=== PATIENT | female | born 1985 | race American Indian/Alaskan Native ===

== ENCOUNTER 2017-02-04 09:35 | Emergency (ER) | payer MEDICAID ==
--- NOTE | 2017-02-04 09:51 | EDM.PDOC ---
ED HPI GENERAL MEDICAL PROBLEM - General Chief Complaint: ENT Problem Stated Complaint: NOT FEELING GOOD Time Seen by Provider: 02/04/17 09:50 Source of Information: Reports: Patient, RN, RN notes reviewed History Limitations: Reports: No limitations - History of Present Illness INITIAL COMMENTS - FREE TEXT/NARRATIVE: C/O 1 week of nasal congestion, cough, and wheezing. Occ. coughs up some thick yellow sputum. Has felt feverish on/off but hasn't measured temperature. Admits to sore throat, wilfredo. when coughing. Onset: gradual Duration: Constant, Getting worse Location: Reports: generalized Severity: moderate Improves with: Reports: None Worsens with: Reports: None Context: Denies: Activity, Exercise, Lifting, Sick contact, Trauma Associated Symptoms: Reports: no other symptoms Anterior Chest Pain Score (Numeric/FACES): 4 - Related Data Allergies Allergy/AdvReac Type Severity Reaction Status Date / Time erythromycin base Allergy Unknown Cannot Verified 07/10/16 21:22 [Erythromycin Base] Remember Sulfa (Sulfonamide Allergy Cannot Verified 07/10/16 21:22 Antibiotics) Remember Home Meds: Home Meds . [No Known Home Meds] 02/04/17 [History] Past Medical History - Past Health History Medical/Surgical History: Denies Medical/Surgical History Cardiovascular History: Reports: Hypertension Genitourinary History: Reports: None Other Neuro History: questionable stroke 2011 Endocrine/Metabolic History: Reports: Diabetes, type II - Past Surgical History Other Musculoskeletal Surgeries/Procedures:: foot surgery Social & Family History - Family History Family Medical History: Noncontributory - Tobacco Use Smoking Status *Q: Never Smoker Years of Tobacco use: 5 Used Tobacco, but Quit: Yes Month Tobacco Last Used: 01/07 Second Hand Smoke Exposure: No - Caffeine Use Caffeine Use: Reports: Soda - Alcohol Use Days Per Week of Alcohol Use: 0 - Recreational Drug Use Recreational Drug Use: No - Living Situation & Occupation Living situation: Reports: , with family Occupation: unemployed ED ROS ENT - Review of Systems Review Of Systems: ROS reveals no pertinent complaints other than HPI. ED EXAM, ENT - Physical Exam Exam: See Below Exam Limited By: No limitations General Appearance: alert, WD/WN, no apparent distress, obese Eye Exam: bilateral eye: normal inspection Ears: normal external exam, normal canal, hearing grossly normal, normal TMs Nose: no blood, nasal discharge (yellow-mcgowan, small amount) Mouth/Throat: Normal inspection, Normal gums, Normal lips, Normal oropharynx, Normal teeth Head: atraumatic, normocephalic Neck: normal inspection, supple, non-tender, full range of motion. No: lymphadenopathy (L), lymphadenopathy (R) Respiratory/Chest: no respiratory distress, no accessory muscle use, chest non- tender, decreased breath sounds, wheezing (mild, scattered) Cardiovascular: normal peripheral pulses, regular rate, rhythm, no edema, no gallop, no JVD, no murmur, no rub GI/Abdominal: Normal Bowel Sounds, Soft, Non-Tender, No Distention (Female) Exam: Deferred Rectal (Female) Exam: Deferred Back: normal inspection, full range of motion Extremities: normal inspection, normal range of motion, non-tender, no pedal edema, normal capillary refill Neurological: alert, oriented, CN II-XII intact, normal cognition, normal gait, no motor/sensory deficits Psychiatric: normal affect, normal mood Skin: Warm, Dry, Intact, Normal color, No rash Course - Vital Signs Last Recorded V/S: Last Vital Signs Temp 36.8 C 02/04/17 09:56 Pulse 96 02/04/17 10:39 Resp 20 02/04/17 09:56 BP 165/103 H 02/04/17 09:56 Pulse Ox 97 02/04/17 09:56 - Orders/Labs/Meds Orders: Active Orders 24 hr Category Date Time Status EKG 12 Lead [EKG Documentation Completion] [] STAT Care 02/04/17 10:26 Active RT Aerosol Therapy [] ASDIRECTED Care 02/04/17 10:27 Active CULTURE STREP A CONFIRMATION [] Stat Lab 02/04/17 09:52 Results STREP SCRN A RAPID W CULT CONF [] Stat Lab 02/04/17 09:52 Results Labs: Laboratory Tests 02/04/17 02/04/17 02/04/17 Range/Units 10:25 10:25 10:35 WBC 12.5 H (5.0-10.0) 10^3/uL RBC 4.89 (4.2-5.4) 10^6/uL Hgb 12.9 (12.0-16.0) g/dL Hct 38.8 (37.0-47.0) % MCV 79.3 L (80-100) fL MCH 26.4 L (27.0-34.0) pg MCHC 33.2 (33.0-35.0) g/dL Plt Count 331 (150-450) 10^3/uL Neut % (Auto) 66.4 (42.2-75.2) % Lymph % (Auto) 25.5 (20.5-50.1) % Garza % (Auto) 5.3 (2-8) % Eos % (Auto) 2.6 (1.0-3.0) % Baso % (Auto) 0.2 (0.0-1.0) % D-Dimer, Quantitative (0-400) ng/mL Sodium (135-145) mmol/L Potassium (3.6-5.0) mmol/L Chloride (101-111) mmol/L Carbon Dioxide (21.0-31.0) mmol/L Anion Gap BUN (7-18) mg/dL Creatinine (0.6-1.3) mg/dL Est Cr Clr Drug Dosing mL/min Estimated GFR (MDRD) BUN/Creatinine Ratio Glucose (74-105) mg/dL Calcium (8.4-10.2) mg/dl Total Bilirubin (0.2-1.0) mg/dL AST (10-42) IU/L ALT (10-60) IU/L Alkaline Phosphatase (42-121) IU/L Total Protein (6.7-8.2) g/dl Albumin (3.2-5.5) g/dl Globulin Albumin/Globulin Ratio TSH, Ultra Sensitive (0.35-7.0) uIu/mL Urine Color Yellow (YELLOW) Urine Appearance Clear (CLEAR) Urine pH 7.0 (5.0-9.0) Ur Specific [place] 1.015 (1.005-1.030) Urine Protein 100 H (NEGATIVE) Urine Glucose (UA) 500 H (NEGATIVE) Urine Ketones 15 H (NEGATIVE) Urine Occult Blood Trace-intact H (NEGATIVE) Urine Nitrite Negative (NEGATIVE) Urine Bilirubin Negative (NEGATIVE) Urine Urobilinogen 0.2 (0.2-1.0) mg/dL Ur Leukocyte Esterase Negative (NEGATIVE) Urine RBC 0-5 /HPF Urine WBC Not seen (0-5/HPF) /HPF Ur Epithelial Cells Few /HPF Urine Yeast Rare H (0/HPF) /HPF Urine HCG, Qual Negative 02/04/17 02/04/17 02/04/17 Range/Units 10:35 10:35 10:35 WBC (5.0-10.0) 10^3/uL RBC (4.2-5.4) 10^6/uL Hgb (12.0-16.0) g/dL Hct (37.0-47.0) % MCV (80-100) fL MCH (27.0-34.0) pg MCHC (33.0-35.0) g/dL Plt Count (150-450) 10^3/uL Neut % (Auto) (42.2-75.2) % Lymph % (Auto) (20.5-50.1) % Garza % (Auto) (2-8) % Eos % (Auto) (1.0-3.0) % Baso % (Auto) (0.0-1.0) % D-Dimer, Quantitative < 100 (0-400) ng/mL Sodium 134 L (135-145) mmol/L Potassium 4.1 (3.6-5.0) mmol/L Chloride 100 L (101-111) mmol/L Carbon Dioxide 22.0 (21.0-31.0) mmol/L Anion Gap 16.1 BUN 10 (7-18) mg/dL Creatinine 0.6 (0.6-1.3) mg/dL Est Cr Clr Drug Dosing 123.37 mL/min Estimated GFR (MDRD) > 60 BUN/Creatinine Ratio 16.66 Glucose 378 H (74-105) mg/dL Calcium 9.1 (8.4-10.2) mg/dl Total Bilirubin 0.3 (0.2-1.0) mg/dL AST 30 (10-42) IU/L ALT 32 (10-60) IU/L Alkaline Phosphatase 127 H (42-121) IU/L Total Protein 7.3 (6.7-8.2) g/dl Albumin 3.8 (3.2-5.5) g/dl Globulin 3.5 Albumin/Globulin Ratio 1.09 TSH, Ultra Sensitive 1.40 (0.35-7.0) uIu/mL Urine Color (YELLOW) Urine Appearance (CLEAR) Urine pH (5.0-9.0) Ur Specific [place] (1.005-1.030) Urine Protein (NEGATIVE) Urine Glucose (UA) (NEGATIVE) Urine Ketones (NEGATIVE) Urine Occult Blood (NEGATIVE) Urine Nitrite (NEGATIVE) Urine Bilirubin (NEGATIVE) Urine Urobilinogen (0.2-1.0) mg/dL Ur Leukocyte Esterase (NEGATIVE) Urine RBC /HPF Urine WBC (0-5/HPF) /HPF Ur Epithelial Cells /HPF Urine Yeast (0/HPF) /HPF Urine HCG, Qual Meds: Medications Discontinued Medications Generic Name Dose Route Start Last Admin Trade Name Freq PRN Reason Stop Dose Admin Albuterol/Ipratropium 3 ml 02/04/17 10:27 02/04/17 10:39 Duoneb 3.0-0.5 Mg/3 Ml NEB 02/04/17 10:28 3 ml ONETIME ONE Administration Benzonatate 200 mg 02/04/17 10:27 02/04/17 10:49 Tessalon Perles PO 02/04/17 10:28 200 mg ONETIME ONE Administration Ceftriaxone Sodium 1 gm/ 0 gm 02/04/17 12:01 Lidocaine HCl 2.1 ml IM 02/04/17 12:02 ONETIME ONE Metoprolol Succinate 25 mg 02/04/17 12:01 Toprol Xl PO 02/04/17 12:02 ONETIME ONE - Radiology Interpretation Free Text/Narrative:: CXR: early basilar infiltrate, seen best on lateral view, see Rad. report. Departure - Departure Time of Disposition: 12:21 Disposition: Home, Self-Care 01 Condition: fair Clinical Impression: Uncontrolled hypertension, Vaginal candidiasis Pneumonia Qualifiers: Pneumonia type: due to unspecified organism Laterality: unspecified laterality Lung location: lower lobe of lung Qualified Code(s): J18.1 - Lobar pneumonia, unspecified organism Diabetes mellitus type 2, uncontrolled Qualifiers: Diabetes mellitus complication status: without complication Diabetes mellitus usp insulin use: without terminal operator use Qualified Code(s): E11.65 - Type 2 diabetes mellitus with hyperglycemia - Discharge Information Instructions: Community-Acquired Pneumonia, Adult, [id number], Hypertension, [id number], Type 2 Diabetes Mellitus, Adult, Vaginal Yeast Infection, Adult Forms: ED Department Discharge Additional Instructions: Rx: Cefdinir 300mg Rx: Albuterol MDI Rx: Diflucan 150mg Rx: Metoprolol XL 25mg Rx: Metformin 500mg Follow up in clinic with Dr. Sesay in 10 to 12 days. - My Orders Last 24 Hours: My Active Orders 02/04/17 09:52 CULTURE STREP A CONFIRMATION [RM] Stat STREP SCRN A RAPID W CULT CONF [RM] Stat 02/04/17 10:26 EKG 12 Lead [EKG Documentation Completion] [RC] STAT 02/04/17 10:27 RT Aerosol Therapy [RC] ASDIRECTED - Assessment/Plan Last 24 Hours: My Active Orders 02/04/17 09:52 CULTURE STREP A CONFIRMATION [RM] Stat STREP SCRN A RAPID W CULT CONF [RM] Stat 02/04/17 10:26 EKG 12 Lead [EKG Documentation Completion] [RC] STAT 02/04/17 10:27 RT Aerosol Therapy [RC] ASDIRECTED
[2017-02-04] MEDS ORDERED: Albuterol/Ipratropium 3.0-0.5 MG/3 ML Neb Soln NEB ONE (10:27)
[2017-02-04] MEDS ORDERED: Benzonatate 100 MG Cap PO ONE (10:27)
[2017-02-04 11:01] LABS: CHLORIDE,CL 100 mmol/L (101-111); SODIUM,NA 134 mmol/L (135-145)
[2017-02-04] MEDS ORDERED: Metoprolol Succinate 25 MG Tab.ER PO ONE (12:01)
[2017-02-04] MEDS ORDERED: cefTRIAXone 1 GM, Lidocaine 1% 2.1 ML IM ONE ×2 (12:01)
--- NOTE | 2017-02-04 12:03 | CR ---
CLINICAL HISTORY: 31-year-old female with cough and dyspnea. INTERPRETATION: Less than optimal inspiratory effort obese female with subtle peribronchial "cuffing " suggesting reactive airway disease but no current signs of air trapping, lung mass, hilar lymphade nopathy or focal lobar pneumonia. No atelectasis/collapse. Ana thorax unremarkable. No pneumothorax. CONCLUSION: Mild bronchitis. No signs of heart failure or lobar pneumonia.
[2017-02-04 12:24] VITALS: BP 152/100
== END 2017-02-04 12:39 | disposition home or self-care (01) ==
LOC: DL.ED 09:35
DX: J18.1 Lobar pneumonia, unspecified organism (principal); B37.3 Candidiasis of vulva and vagina; I10 Essential (primary) hypertension; E11.65 Type 2 diabetes mellitus with hyperglycemia; Z88.2 Allergy status to sulfonamides; Z88.8 Allergy status to other drugs, medicaments and biological substances
CPT/HCPCS: 36415; 71020; 80053; 81001; 81025; 84443; 85025; 85379; 87081; 87430; 94640; 96372; 99285; A9270; J0696

== ENCOUNTER 2018-01-27 21:14 | Emergency (ER) | payer MEDICAID ==
[2018-01-27 20:57] VITALS: BP 170/103
--- NOTE | 2018-01-27 21:18 | EDM.PDOC ---
ED HPI GENERAL MEDICAL PROBLEM - General Chief Complaint: General Stated Complaint: ANXIETY Time Seen by Provider: 01/27/18 21:25 Source of Information: Reports: Patient History Limitations: Reports: No Limitations - History of Present Illness INITIAL COMMENTS - FREE TEXT/NARRATIVE: This 32 yo female patient was brought to the ED by [facility] due to elevated blood pressure and anxiety. By the time the patient got to the ED, the patient reports her blood pressure seems to be better and her anxiety is under control. The patient reports that she has a sore throat and swelling on the right side of her neck. The patient also reports that she has a red area on her left inner lower leg. The pt. reports the area started like a pimple, but has continued to get more painful and getting bigger. The patient reports she initially "popped" it and has been cleaning it daily, but has noticed that the area is more tender. Onset: Today Duration: Constant, Getting Worse Location: Reports: Neck, Lower Extremity, Left Quality: Reports: Ache Severity: Moderate Improves with: Reports: None Worsens with: Reports: None Associated Symptoms: Reports: No Other Symptoms - Related Data Allergies Allergy/AdvReac Type Severity Reaction Status Date / Time erythromycin base Allergy Unknown Cannot Verified 01/27/18 21:00 [Erythromycin Base] Remember Sulfa (Sulfonamide Allergy Cannot Verified 01/27/18 21:00 Antibiotics) Remember Home Meds: Home Meds Lisinopril 10 mg PO DAILY 01/27/18 [History] Metoprolol Succinate/HCTZ [Metoprolol ER-Hctz 25-12.5 mg] 25 mg PO DAILY [History] glipiZIDE [Glucotrol XL] 10 mg PO BID 01/27/18 [History] Past Medical History - Past Health History Medical/Surgical History: Denies Medical/Surgical History Cardiovascular History: Reports: Hypertension Genitourinary History: Reports: None Musculoskeletal History: Reports: None Neurological History: Reports: Other (See Below) Other Neuro History: Hornbeck palsy hx Psychiatric History: Reports: Anxiety Endocrine/Metabolic History: Reports: Diabetes, Type II - Past Surgical History HEENT Surgical History: Reports: Myringotomy w Tube(s) Female Surgical History: Reports: Section, Tubal Ligation Musculoskeletal Surgical History: Reports: Other (See Below) Other Musculoskeletal Surgeries/Procedures:: foot surgery Social & Family History - Family History Family Medical History: Noncontributory - Tobacco Use Smoking Status *Q: Current Every Day Smoker Years of Tobacco use: 1 Packs/Tins Daily: 0.2 Used Tobacco, but Quit: Yes Month/Year Tobacco Last Used: 01/07 Second Hand Smoke Exposure: No - Caffeine Use Caffeine Use: Reports: None - Alcohol Use Days Per Week of Alcohol Use: 0 - Recreational Drug Use Recreational Drug Use: No - Living Situation & Occupation Living situation: Reports: , with Family Occupation: Unemployed ED ROS GENERAL - Review of Systems Review Of Systems: ROS reveals no pertinent complaints other than HPI. ED EXAM, GENERAL - Physical Exam Exam: See Below Exam Limited By: No Limitations General Appearance: Alert, WD/WN, Mild Distress Eye Exam: Bilateral Eye: EOMI, Normal Inspection, PERRL Ears: Normal External Exam, Normal Canal, Hearing Grossly Normal, Normal TMs Nose: Normal Inspection, Normal Mucosa, No Blood Throat/Mouth: Normal Inspection, Normal Lips, Normal Teeth, Normal Gums, Normal Oropharynx, Normal Voice, No Airway Compromise Head: Atraumatic, Normocephalic Neck: Normal Inspection, Full Range of Motion, Lymphadenopathy (R) Respiratory/Chest: No Respiratory Distress, Lungs Clear, Normal Breath Sounds, No Accessory Muscle Use, Chest Non-Tender Cardiovascular: Normal Peripheral Pulses, Regular Rate, Rhythm, No Edema, No Gallop, No JVD, No Murmur, No Rub GI/Abdominal: Normal Bowel Sounds, Soft, Non-Tender, No Organomegaly, No Distention, No Abnormal Bruit, No Mass (Female) Exam: Deferred Rectal (Female) Exam: Deferred Back Exam: Normal Inspection, Full Range of Motion, NT Extremities: Redness (medial left lower leg has an erythematous area about 1 cm across) Neurological: Alert, Oriented, CN II-XII Intact, Normal Cognition, Normal Gait, Normal Reflexes, No Motor/Sensory Deficits Psychiatric: Normal Affect, Normal Mood Skin Exam: Other (described above) Lymphatic: No Adenopathy Course - Vital Signs Last Recorded V/S: Last Vital Signs Temp 36.8 C 01/27/18 20:56 Pulse 92 01/27/18 20:56 Resp 20 01/27/18 20:56 BP 170/103 H 01/27/18 20:56 Pulse Ox 99 01/27/18 20:56 Departure - Departure Time of Disposition: 22:11 Disposition: Home, Self-Care 01 Condition: Fair Clinical Impression: Strep pharyngitis, Cellulitis of left lower extremity - Discharge Information Instructions: Strep Throat, Gxrq-[id number], Cellulitis, Adult, [id number]-Pavf Forms: ED Department Discharge Care Plan Goals: The patient was advised of the examination and lab results during the visit. The patient was given an oral dose of Clindamycin (300 mg) while in the ED. The patient was discharged with a script for Clindamycin (300 mg) to take 1 by mouth 4 times per day for 10 days. If the patient has any additional symptoms or concerns, the patient should follow-up with her primary care facility or return to the emergency department.
[2018-01-27] MEDS ORDERED: Clindamycin HCl 150 MG Cap PO ONE (22:14)
== END 2018-01-27 22:21 | disposition home or self-care (01) ==
LOC: DL.ED 21:14
DX: J02.0 Streptococcal pharyngitis (principal); L03.116 Cellulitis of left lower limb; F17.210 Nicotine dependence, cigarettes, uncomplicated; I10 Essential (primary) hypertension; E11.9 Type 2 diabetes mellitus without complications; F41.9 Anxiety disorder, unspecified; Z79.899 Other long term (current) drug therapy; Z88.2 Allergy status to sulfonamides; Z88.1 Allergy status to other antibiotic agents
CPT/HCPCS: 87430; 99284

== ENCOUNTER 2018-02-10 22:11 | Emergency (ER) | payer MEDICAID ==
[2018-02-10 23:01] LABS: CHLORIDE,CL 104 mmol/L (101-111); SODIUM,NA 137 mmol/L (135-145)
[2018-02-10] MEDS ORDERED: Potassium Chloride 10 MEQ Tab.ER PO ONE (23:30)
--- NOTE | 2018-02-10 23:38 | EDM.PDOC ---
ED HPI GENERAL MEDICAL PROBLEM - General Chief Complaint: General Stated Complaint: WEAKNESS Time Seen by Provider: 02/10/18 22:20 Source of Information: Reports: Patient History Limitations: Reports: No Limitations - History of Present Illness INITIAL COMMENTS - FREE TEXT/NARRATIVE: ED with c/o of feeling weak today and that something poking in left arm, Better now than prior. Has hx of high BP and was told to check it every 4 hours but has been taking every 2 hours, unable to recall where was told to check that frequently. Notes has been 150's-160"s at home. Wonders if blood sugars high. - Related Data Allergies Allergy/AdvReac Type Severity Reaction Status Date / Time erythromycin base Allergy Unknown Cannot Verified 02/10/18 22:02 [Erythromycin Base] Remember Sulfa (Sulfonamide Allergy Cannot Verified 02/10/18 22:02 Antibiotics) Remember Home Meds: Home Meds Lisinopril 10 mg PO DAILY 01/27/18 [History] Metoprolol Succinate/HCTZ [Metoprolol ER-Hctz 25-12.5 mg] 25 mg PO DAILY [History] glipiZIDE [Glucotrol XL] 10 mg PO BID 01/27/18 [History] Past Medical History - Past Health History Medical/Surgical History: Denies Medical/Surgical History HEENT History: Reports: Impaired Vision Cardiovascular History: Reports: Hypertension Genitourinary History: Reports: None 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: Musculoskeletal History: Reports: None Neurological History: Reports: CVA, Other (See Below) Other Neuro History: questionable stroke 2012, Rosman palsy Psychiatric History: Reports: Anxiety, Depression Endocrine/Metabolic History: Reports: Diabetes, Type II - Past Surgical History HEENT Surgical History: Reports: Myringotomy w Tube(s) Female Surgical History: Reports: Section Musculoskeletal Surgical History: Reports: Other (See Below) Other Musculoskeletal Surgeries/Procedures:: foot surgery Social & Family History - Family History Family Medical History: Noncontributory - Tobacco Use Smoking Status *Q: Current Every Day Smoker Years of Tobacco use: 14 Packs/Tins Daily: 0.1 - Caffeine Use Caffeine Use: Reports: None - Recreational Drug Use Recreational Drug Use: No - Living Situation & Occupation Living situation: Reports: , with Family Occupation: Unemployed ED ROS GENERAL - Review of Systems Review Of Systems: See Below Constitutional: Reports: Weakness (general, "just dont feel good). Denies: Fever, Chills HEENT: Reports: No Symptoms Respiratory: Reports: No Symptoms Cardiovascular: Reports: Blood Pressure Problem. Denies: Lightheadedness, Palpitations Endocrine: Reports: No Symptoms GI/Abdominal: Reports: No Symptoms : Reports: No Symptoms Musculoskeletal: Reports: Arm Pain Skin: Reports: No Symptoms Neurological: Reports: No Symptoms, Weakness (general). Denies: Headache, Numbness, Difficulty Walking, Change in Speech, Gait Disturbance Psychiatric: Reports: Anxiety ED EXAM, GENERAL - Physical Exam Exam: See Below Exam Limited By: No Limitations General Appearance: Alert, No Apparent Distress, Obese Eye Exam: Bilateral Eye: EOMI, PERRL Ears: Normal External Exam Nose: Normal Inspection, Normal Mucosa Throat/Mouth: Normal Inspection Head: Atraumatic, Normocephalic Neck: Normal Inspection Respiratory/Chest: No Respiratory Distress, Lungs Clear, Normal Breath Sounds Cardiovascular: Normal Peripheral Pulses, Regular Rate, Rhythm, No Edema GI/Abdominal: Normal Bowel Sounds (Female) Exam: Normal Speculum Exam Extremities: Normal Inspection, Normal Range of Motion, Non-Tender, No Pedal Edema Neurological: Alert, Oriented, CN II-XII Intact, Normal Cognition, Normal Reflexes, Other (equal strentgth upper and lower.) Psychiatric: Anxious Skin Exam: Warm, Dry, Intact, Normal Color Course - Vital Signs Last Recorded V/S: Last Vital Signs Temp 98.7 F 02/10/18 23:43 Pulse 84 02/10/18 23:43 Resp 16 02/10/18 23:43 BP 135/75 02/10/18 23:43 Pulse Ox 99 02/10/18 23:43 - Orders/Labs/Meds Labs: Laboratory Tests 02/10/18 02/10/18 02/10/18 Range/Units 22:27 22:27 22:27 WBC 10.7 H (5.0-10.0) 10^3/uL RBC 4.84 (4.2-5.4) 10^6/uL Hgb 12.7 (12.0-16.0) g/dL Hct 37.8 (37.0-47.0) % MCV 78.1 L (80-100) fL MCH 26.2 L (27.0-34.0) pg MCHC 33.6 (33.0-35.0) g/dL Plt Count 316 (150-450) 10^3/uL Neut % (Auto) 62.0 (42.2-75.2) % Lymph % (Auto) 31.9 (20.5-50.1) % [place] % (Auto) 4.6 (2-8) % Eos % (Auto) 1.3 (1.0-3.0) % Baso % (Auto) 0.2 (0.0-1.0) % Sodium 137 (135-145) mmol/L Potassium 3.2 L (3.6-5.0) mmol/L Chloride 104 (101-111) mmol/L Carbon Dioxide 22.0 (21.0-31.0) mmol/L Anion Gap 14.2 BUN 9 (7-18) mg/dL Creatinine 0.5 L (0.6-1.3) mg/dL Est Cr Clr Drug Dosing 146.70 mL/min Estimated GFR (MDRD) > 60 BUN/Creatinine Ratio 18.00 Glucose 221 H (74-105) mg/dL POC Glucose (70-105) mg/dl Lactic Acid 1.9 (0.5-2.2) mmol/L Calcium 8.7 (8.4-10.2) mg/dl Total Bilirubin 0.3 (0.2-1.0) mg/dL AST 25 (10-42) IU/L ALT 21 (10-60) IU/L Alkaline Phosphatase 91 (42-121) IU/L Troponin I (0.00-0.02) ng/ml Total Protein 7.3 (6.7-8.2) g/dl Albumin 3.6 (3.2-5.5) g/dl Globulin 3.7 Albumin/Globulin Ratio 0.97 Urine Color (YELLOW) Urine Appearance (CLEAR) Urine pH (5.0-9.0) Ur Specific [place] (1.005-1.030) Urine Protein (NEGATIVE) Urine Glucose (UA) (NEGATIVE) Urine Ketones (NEGATIVE) Urine Occult Blood (NEGATIVE) Urine Nitrite (NEGATIVE) Urine Bilirubin (NEGATIVE) Urine Urobilinogen (0.2-1.0) mg/dL Ur Leukocyte Esterase (NEGATIVE) Urine RBC /HPF Urine WBC (0-5/HPF) /HPF Ur Epithelial Cells /HPF Urine Bacteria (0-FEW/HPF) /HPF Hyaline Casts /LPF Fine Granular Casts (0/LPF) /LPF Urine Mucus /LPF 02/10/18 02/10/18 02/10/18 Range/Units 22:27 23:02 23:05 WBC (5.0-10.0) 10^3/uL RBC (4.2-5.4) 10^6/uL Hgb (12.0-16.0) g/dL Hct (37.0-47.0) % MCV (80-100) fL MCH (27.0-34.0) pg MCHC (33.0-35.0) g/dL Plt Count (150-450) 10^3/uL Neut % (Auto) (42.2-75.2) % Lymph % (Auto) (20.5-50.1) % [place] % (Auto) (2-8) % Eos % (Auto) (1.0-3.0) % Baso % (Auto) (0.0-1.0) % Sodium (135-145) mmol/L Potassium (3.6-5.0) mmol/L Chloride (101-111) mmol/L Carbon Dioxide (21.0-31.0) mmol/L Anion Gap BUN (7-18) mg/dL Creatinine (0.6-1.3) mg/dL Est Cr Clr Drug Dosing mL/min Estimated GFR (MDRD) BUN/Creatinine Ratio Glucose (74-105) mg/dL POC Glucose 227 H (70-105) mg/dl Lactic Acid (0.5-2.2) mmol/L Calcium (8.4-10.2) mg/dl Total Bilirubin (0.2-1.0) mg/dL AST (10-42) IU/L ALT (10-60) IU/L Alkaline Phosphatase (42-121) IU/L Troponin I < 0.02 (0.00-0.02) ng/ml Total Protein (6.7-8.2) g/dl Albumin (3.2-5.5) g/dl Globulin Albumin/Globulin Ratio Urine Color Yellow (YELLOW) Urine Appearance Slightly cloudy (CLEAR) Urine pH 5.5 (5.0-9.0) Ur Specific [place] >= 1.030 (1.005-1.030) Urine Protein >=300 H (NEGATIVE) Urine Glucose (UA) 500 H (NEGATIVE) Urine Ketones Trace H (NEGATIVE) Urine Occult Blood Trace-lysed H (NEGATIVE) Urine Nitrite Negative (NEGATIVE) Urine Bilirubin Negative (NEGATIVE) Urine Urobilinogen 0.2 (0.2-1.0) mg/dL Ur Leukocyte Esterase Negative (NEGATIVE) Urine RBC 0-5 /HPF Urine WBC 0-5 (0-5/HPF) /HPF Ur Epithelial Cells Many H /HPF Urine Bacteria Moderate H (0-FEW/HPF) /HPF Hyaline Casts Occasional H /LPF Fine Granular Casts Occasional H (0/LPF) /LPF Urine Mucus Few H /LPF Meds: Medications Discontinued Medications Generic Name Dose Route Start Last Admin Trade Name Luisq PRN Reason Stop Dose Admin Potassium Chloride 20 meq 02/10/18 23:30 02/10/18 23:42 Klor-Con 10 PO 02/10/18 23:31 20 meq ONETIME ONE Administration Departure - Departure Time of Disposition: 23:32 Disposition: Home, Self-Care 01 Condition: Good Clinical Impression: Hypokalemia Hypertension Qualifiers: Hypertension type: unspecified Qualified Code(s): I10 - Essential (primary) hypertension - Discharge Information Instructions: Managing Your Hypertension Forms: ED Department Discharge Additional Instructions: Medications as directed aspirin enteric coated 81mg daily Recheck potassium with follow up with primary care provider on Thursday, call to schedule
[2018-02-10 23:45] VITALS: BP 135/75
== END 2018-02-10 23:48 | disposition home or self-care (01) ==
LOC: DL.ED 22:11
DX: E87.6 Hypokalemia (principal); I10 Essential (primary) hypertension; E11.9 Type 2 diabetes mellitus without complications; F41.9 Anxiety disorder, unspecified; F32.9 Major depressive disorder, single episode, unspecified; F17.210 Nicotine dependence, cigarettes, uncomplicated; Z88.1 Allergy status to other antibiotic agents; Z88.2 Allergy status to sulfonamides; Z79.899 Other long term (current) drug therapy; Z79.84 Long term (current) use of oral hypoglycemic drugs; Z86.73 Personal history of transient ischemic attack (TIA), and cerebral infarction without residual deficits
CPT/HCPCS: 36415; 80053; 81001; 82962; 83605; 84484; 85025; 87040; 93005; 99284; A9270-GY

== ENCOUNTER 2018-02-26 22:13 | Emergency (ER) | payer MEDICAID ==
[2018-02-26] MEDS ORDERED: Ondansetron 4 MG Tab.DIS PO ONE (22:14)
[2018-02-26] MEDS ORDERED: Metoclopramide 10 MG/2 ML SDV IVPUSH ONE (23:15)
[2018-02-26] MEDS ORDERED: Sodium Chloride 0.9% 1,000 ML IV ONE (23:15)
[2018-02-26 23:50] LABS: CHLORIDE,CL 103 mmol/L (101-111); SODIUM,NA 137 mmol/L (135-145)
--- NOTE | 2018-02-27 00:30 | EDM.PDOC ---
ED HPI GENERAL MEDICAL PROBLEM - General Chief Complaint: Abdominal Pain Stated Complaint: STOMACH PAIN Time Seen by Provider: 02/26/18 23:10 Source of Information: Reports: Patient History Limitations: Reports: No Limitations - History of Present Illness INITIAL COMMENTS - FREE TEXT/NARRATIVE: C/O sudden onset of diarrhea, vomiting and body aches since 5pm,. with similar symptoms 2 days ago. No fever , chills at present. States felt fine all day, Last meal chicken. Sudden onset of sx while walking in [employer]. No cough or cold sx, epigastric burning, no radiation of pain. Generalized Pain Score (Numeric/FACES): 9 - Related Data Allergies Allergy/AdvReac Type Severity Reaction Status Date / Time erythromycin base Allergy Unknown Cannot Verified 02/26/18 23:03 [Erythromycin Base] Remember Sulfa (Sulfonamide Allergy Cannot Verified 02/26/18 23:03 Antibiotics) Remember Home Meds: Home Meds Lisinopril 10 mg PO DAILY 01/27/18 [History] Metoprolol Succinate/HCTZ [Metoprolol ER-Hctz 25-12.5 mg] 25 mg PO DAILY [History] glipiZIDE [Glucotrol XL] 10 mg PO BID 01/27/18 [History] Past Medical History - Past Health History Medical/Surgical History: Denies Medical/Surgical History HEENT History: Reports: Impaired Vision Cardiovascular History: Reports: Hypertension Genitourinary History: Reports: 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: Musculoskeletal History: Reports: None Neurological History: Reports: CVA, Other (See Below) Other Neuro History: questionable stroke 2012, [place] palsy Psychiatric History: Reports: Anxiety, Depression Endocrine/Metabolic History: Reports: Diabetes, Type II - Infectious Disease History Infectious Disease History: Reports: None - Past Surgical History HEENT Surgical History: Reports: Myringotomy w Tube(s) Female Surgical History: Reports: Section Musculoskeletal Surgical History: Reports: Other (See Below) Other Musculoskeletal Surgeries/Procedures:: foot surgery Social & Family History - Family History Family Medical History: Noncontributory - Tobacco Use Smoking Status *Q: Unknown Ever Smoked - Caffeine Use Caffeine Use: Reports: Soda, Tea Other Caffeine Use: states rare soda - Recreational Drug Use Recreational Drug Use: No - Living Situation & Occupation Living situation: Reports: , with Family Occupation: Unemployed ED ROS GENERAL - Review of Systems Review Of Systems: ROS reveals no pertinent complaints other than HPI. ED EXAM, GI/ABD - Physical Exam Exam: See Below Exam Limited By: No Limitations General Appearance: Alert, Moderate Distress (nausea, vomiting) Eyes: Bilateral: EOMI Ears: Normal External Exam Nose: Normal Inspection Throat/Mouth: Normal Inspection Head: Atraumatic, Normocephalic Neck: Normal Inspection Respiratory/Chest: No Respiratory Distress, Lungs Clear Cardiovascular: Normal Peripheral Pulses, Regular Rate, Rhythm GI/Abdominal Exam: Normal Bowel Sounds, Soft, Tender (epigastric). No: Distended, Guarding, Rebound Extremities: Normal Inspection Neurological: Alert, Oriented Psychiatric: Normal Affect Skin Exam: Warm, Dry, Intact, Normal Color Course - Vital Signs Last Recorded V/S: Last Vital Signs Temp 98.8 F 02/27/18 00:40 Pulse 88 02/27/18 00:40 Resp 14 02/27/18 00:40 BP 103/75 02/27/18 00:40 Pulse Ox 99 02/27/18 00:40 - Orders/Labs/Meds Labs: Laboratory Tests 02/26/18 02/26/18 02/26/18 Range/Units 23:10 23:25 23:25 WBC 14.7 H (5.0-10.0) 10^3/uL RBC 5.22 (4.2-5.4) 10^6/uL Hgb 13.6 (12.0-16.0) g/dL Hct 41.2 (37.0-47.0) % MCV 78.9 L (80-100) fL MCH 26.1 L (27.0-34.0) pg MCHC 33.0 (33.0-35.0) g/dL Plt Count 312 (150-450) 10^3/uL Neut % (Auto) 89.0 H (42.2-75.2) % Lymph % (Auto) 7.2 L (20.5-50.1) % [place] % (Auto) 3.3 (2-8) % Eos % (Auto) 0.5 L (1.0-3.0) % Baso % (Auto) 0.0 (0.0-1.0) % Sodium 137 (135-145) mmol/L Potassium 3.8 (3.6-5.0) mmol/L Chloride 103 (101-111) mmol/L Carbon Dioxide 23.0 (21.0-31.0) mmol/L Anion Gap 14.8 BUN 13 (7-18) mg/dL Creatinine 0.7 (0.6-1.3) mg/dL Est Cr Clr Drug Dosing 104.78 mL/min Estimated GFR (MDRD) > 60 BUN/Creatinine Ratio 18.57 Glucose 244 H (74-105) mg/dL Calcium 8.9 (8.4-10.2) mg/dl Total Bilirubin 0.6 (0.2-1.0) mg/dL AST 28 (10-42) IU/L ALT 23 (10-60) IU/L Alkaline Phosphatase 103 (42-121) IU/L Total Protein 7.6 (6.7-8.2) g/dl Albumin 4.0 (3.2-5.5) g/dl Globulin 3.6 Albumin/Globulin Ratio 1.11 Amylase 39 (28-100) U/L Lipase 22 (22-51) U/L Urine Color Yellow (YELLOW) Urine Appearance Slightly cloudy (CLEAR) Urine pH 5.5 (5.0-9.0) Ur Specific [place] >= 1.030 (1.005-1.030) Urine Protein >=300 H (NEGATIVE) Urine Glucose (UA) 250 H (NEGATIVE) Urine Ketones >=160 H (NEGATIVE) Urine Occult Blood Negative (NEGATIVE) Urine Nitrite Negative (NEGATIVE) Urine Bilirubin Small H (NEGATIVE) Urine Urobilinogen 0.2 (0.2-1.0) mg/dL Ur Leukocyte Esterase Negative (NEGATIVE) Urine RBC 0-5 /HPF Urine WBC 5-10 H (0-5/HPF) /HPF Ur Epithelial Cells Many H /HPF Urine Bacteria Many H (0-FEW/HPF) /HPF Urine Mucus Moderate H /LPF Meds: Medications Discontinued Medications Generic Name Dose Route Start Last Admin Trade Name Freq PRN Reason Stop Dose Admin Sodium Chloride 1,000 mls @ 999 mls/hr 02/26/18 23:15 02/26/18 23:30 Normal Saline IV 02/27/18 00:15 999 mls/hr .BOLUS ONE Administration Metoclopramide HCl 10 mg 02/26/18 23:15 02/26/18 23:30 Reglan IVPUSH 02/26/18 23:16 10 mg ONETIME ONE Administration Ondansetron HCl Confirm 02/27/18 00:32 02/27/18 01:35 Zofran Odt Administered 02/27/18 00:33 Not Given Dose 12 mg .ROUTE .STK-MED ONE Departure - Departure Time of Disposition: 00:24 Disposition: Home, Self-Care 01 Condition: Good Clinical Impression: Gastroenteritis - Discharge Information Instructions: Viral Gastroenteritis, Adult, [id number] Referrals: PCP,None [Primary Care Provider] - Forms: ED Department Discharge Additional Instructions: zofran 4mg ODT one every 4 hours as needed for nausea and vomiting #3 small sips liquid, gradual increase in amount as tolerated then advance diet slowly follow up if symptoms not improving, increased pain
[2018-02-27] MEDS ORDERED: Ondansetron 4 MG Tab.DIS ONE (00:32)
[2018-02-27 00:53] VITALS: BP 103/75
== END 2018-02-27 00:44 | disposition home or self-care (01) ==
LOC: DL.ED 22:13
DX: K52.9 Noninfective gastroenteritis and colitis, unspecified (principal); E11.9 Type 2 diabetes mellitus without complications; I10 Essential (primary) hypertension; Z79.84 Long term (current) use of oral hypoglycemic drugs; Z88.2 Allergy status to sulfonamides; Z88.1 Allergy status to other antibiotic agents
CPT/HCPCS: 36415; 80053; 81001; 82150; 83690; 85025; 87804; 96365; 96375; 99284; J2765; J7030

== ENCOUNTER 2018-06-07 10:37 | Emergency (ER) | payer MEDICAID ==
--- NOTE | 2018-06-07 10:42 | EDM.PDOC ---
ED HPI GENERAL MEDICAL PROBLEM - General Chief Complaint: Fever Stated Complaint: IN BY [facility] Time Seen by Provider: 06/07/18 10:42 Source of Information: Reports: Patient, EMS, Old Records, RN History Limitations: Reports: No Limitations - History of Present Illness INITIAL COMMENTS - FREE TEXT/NARRATIVE: Pt arrives to ER from home by [facility] with c/o waking this morning with fever, sore throat, cough, nausea, vomiting, and body aches. Pt states she was well yesterday up until she went to bed. She denies shortness of breath, diarrhea, constipation, or dysuria. EMS reports pt's blood sugar was over 350, which the pt states is very high for her. No one else has been sick at home. She states she was exposed to strep throat recently. Onset: Today Duration: Constant Location: Reports: Generalized Quality: Reports: Ache, Burning Severity: Severe Improves with: Reports: None Worsens with: Reports: None Associated Symptoms: Reports: No Other Symptoms - Related Data Allergies Allergy/AdvReac Type Severity Reaction Status Date / Time erythromycin base Allergy Unknown Cannot Verified 06/07/18 10:43 [Erythromycin Base] Remember Sulfa (Sulfonamide Allergy Cannot Verified 06/07/18 10:43 Antibiotics) Remember Home Meds: Home Meds Lisinopril 10 mg PO DAILY 01/27/18 [History] Metoprolol Succinate/HCTZ [Metoprolol ER-Hctz 25-12.5 mg] 25 mg PO DAILY [History] glipiZIDE [Glucotrol XL] 10 mg PO BID 01/27/18 [History] Past Medical History - Past Health History Medical/Surgical History: Denies Medical/Surgical History HEENT History: Reports: Impaired Vision Cardiovascular History: Reports: Hypertension Genitourinary History: Reports: None [employer]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: Musculoskeletal History: Reports: None Neurological History: Reports: CVA, Other (See Below) Other Neuro History: questionable stroke 2012, [place] palsy Psychiatric History: Reports: Anxiety, Depression Endocrine/Metabolic History: Reports: Diabetes, Type II, Obesity/BMI 30+ - Infectious Disease History Infectious Disease History: Reports: None - Past Surgical History HEENT Surgical History: Reports: Myringotomy w Tube(s) Female Surgical History: Reports: Section Musculoskeletal Surgical History: Reports: Other (See Below) Other Musculoskeletal Surgeries/Procedures:: foot surgery Social & Family History - Family History Family Medical History: Noncontributory - Caffeine Use Caffeine Use: Reports: Soda, Tea Other Caffeine Use: states rare soda - Living Situation & Occupation Living situation: Reports: , with Family Occupation: Unemployed ED ROS GENERAL - Review of Systems Review Of Systems: ROS reveals no pertinent complaints other than HPI. ED EXAM, GENERAL - Physical Exam Exam: See Below Exam Limited By: No Limitations General Appearance: Alert, No Apparent Distress, Obese, Other (Active emesis on arrival to ER. Acutely ill but not toxic appearing.) Eye Exam: Bilateral Eye: Normal Inspection (No scleral icterus.) Ears: Normal External Exam Nose: Normal Inspection, Normal Mucosa, No Blood Throat/Mouth: Normal Lips, Normal Voice, No Airway Compromise, Other ( pharyngeal erythema) Head: Atraumatic, Normocephalic Neck: Full Range of Motion, Other (shoddy cervical lymphadenopathy, no nuchal rigidity) Respiratory/Chest: No Respiratory Distress, Lungs Clear, Normal Breath Sounds, No Accessory Muscle Use, Chest Non-Tender, Other (non-productive cough) Cardiovascular: Regular Rate, Rhythm, No Edema GI/Abdominal: Normal Bowel Sounds, Soft, Non-Tender, No Distention. No: Guarding, Rigid, Rebound (Female) Exam: Deferred Rectal (Female) Exam: Deferred Back Exam: Normal Inspection, Full Range of Motion. No: CVA Tenderness (L), CVA Tenderness (R) Extremities: Normal Inspection, Normal Range of Motion, Non-Tender, Normal Capillary Refill, No Pedal Edema Neurological: Alert, Oriented, CN II-XII Intact, Normal Cognition, No Motor/ Sensory Deficits Psychiatric: Normal Affect, Normal Mood Skin Exam: Warm, Dry, Intact, Normal Color, No Rash Course - Vital Signs Last Recorded V/S: Last Vital Signs Temp 37.3 C 06/07/18 10:38 Pulse 89 06/07/18 10:38 Resp 17 06/07/18 10:38 BP 175/89 H 06/07/18 10:38 Pulse Ox 97 06/07/18 10:38 - Orders/Labs/Meds Orders: Active Orders 24 hr Category Date Time Status CULTURE BLOOD [BC] Stat Lab 06/07/18 10:58 Received CULTURE BLOOD [BC] Stat Lab 06/07/18 11:03 Received CULTURE STREP A CONFIRMATION [RM] Stat Lab 06/07/18 10:55 Results HCG QUALITATIVE,URINE [URCHEM] Stat Lab 06/07/18 11:33 Ordered STREP SCRN A RAPID W CULT CONF [RM] Stat Lab 06/07/18 10:55 Results UA W/MICROSCOPIC [URIN] Stat Lab 06/07/18 11:33 Ordered Ketorolac [Toradol] Med 06/07/18 12:51 Once 30 mg IVPUSH ONETIME ONE diphenhydrAMINE [Benadryl] Med 06/07/18 12:51 Once 25 mg IVPUSH ONETIME ONE Blood Culture x2 Reflex Set [OM.PC] Stat Oth 06/07/18 10:42 Ordered Medication Orders Diphenhydramine HCl (Benadryl) 25 mg IVPUSH ONETIME ONE Stop: 06/07/18 12:52 Ketorolac Tromethamine (Toradol) 30 mg IVPUSH ONETIME ONE Stop: 06/07/18 12:52 Labs: Laboratory Tests 06/07/18 06/07/18 06/07/18 Range/Units 10:58 10:58 10:58 WBC 9.3 (5.0-10.0) 10^3/uL RBC 4.87 (4.2-5.4) 10^6/uL Hgb 12.5 (12.0-16.0) g/dL Hct 38.3 (37.0-47.0) % MCV 78.6 L (80-100) fL MCH 25.7 L (27.0-34.0) pg MCHC 32.6 L (33.0-35.0) g/dL Plt Count 313 (150-450) 10^3/uL Neut % (Auto) 59.5 (42.2-75.2) % Lymph % (Auto) 33.1 (20.5-50.1) % [place] % (Auto) 6.0 (2-8) % Eos % (Auto) 1.3 (1.0-3.0) % Baso % (Auto) 0.1 (0.0-1.0) % Sodium 135 (135-145) mmol/L Potassium 3.9 (3.6-5.0) mmol/L Chloride 99 L (101-111) mmol/L Carbon Dioxide 24.0 (21.0-31.0) mmol/L Anion Gap 15.9 BUN 10 (7-18) mg/dL Creatinine 0.6 (0.6-1.3) mg/dL Est Cr Clr Drug Dosing 121.13 mL/min Estimated GFR (MDRD) > 60 BUN/Creatinine Ratio 16.66 Glucose 278 H (74-105) mg/dL Lactic Acid 2.4 H (0.5-2.2) mmol/L Calcium 8.6 (8.4-10.2) mg/dl Total Bilirubin 0.5 (0.2-1.0) mg/dL AST 21 (10-42) IU/L ALT 18 (10-60) IU/L Alkaline Phosphatase 94 (42-121) IU/L Total Protein 7.1 (6.7-8.2) g/dl Albumin 3.6 (3.2-5.5) g/dl Globulin 3.5 Albumin/Globulin Ratio 1.03 Amylase 39 (28-100) U/L Lipase 30 (22-51) U/L Urine Color (YELLOW) Urine Appearance (CLEAR) Urine pH (5.0-9.0) Ur Specific [place] (1.005-1.030) Urine Protein (NEGATIVE) Urine Glucose (UA) (NEGATIVE) Urine Ketones (NEGATIVE) Urine Occult Blood (NEGATIVE) Urine Nitrite (NEGATIVE) Urine Bilirubin (NEGATIVE) Urine Urobilinogen (0.2-1.0) mg/dL Ur Leukocyte Esterase (NEGATIVE) Urine RBC /HPF Urine WBC (0-5/HPF) /HPF Ur Epithelial Cells /HPF Urine Bacteria (0-FEW/HPF) /HPF Urine HCG, Qual Ketones Negative 06/07/18 06/07/18 Range/Units 11:33 11:33 WBC (5.0-10.0) 10^3/uL RBC (4.2-5.4) 10^6/uL Hgb (12.0-16.0) g/dL Hct (37.0-47.0) % MCV (80-100) fL MCH (27.0-34.0) pg MCHC (33.0-35.0) g/dL Plt Count (150-450) 10^3/uL Neut % (Auto) (42.2-75.2) % Lymph % (Auto) (20.5-50.1) % [place] % (Auto) (2-8) % Eos % (Auto) (1.0-3.0) % Baso % (Auto) (0.0-1.0) % Sodium (135-145) mmol/L Potassium (3.6-5.0) mmol/L Chloride (101-111) mmol/L Carbon Dioxide (21.0-31.0) mmol/L Anion Gap BUN (7-18) mg/dL Creatinine (0.6-1.3) mg/dL Est Cr Clr Drug Dosing mL/min Estimated GFR (MDRD) BUN/Creatinine Ratio Glucose (74-105) mg/dL Lactic Acid (0.5-2.2) mmol/L Calcium (8.4-10.2) mg/dl Total Bilirubin (0.2-1.0) mg/dL AST (10-42) IU/L ALT (10-60) IU/L Alkaline Phosphatase (42-121) IU/L Total Protein (6.7-8.2) g/dl Albumin (3.2-5.5) g/dl Globulin Albumin/Globulin Ratio Amylase (28-100) U/L Lipase (22-51) U/L Urine Color Dark yellow (YELLOW) Urine Appearance Cloudy (CLEAR) Urine pH 6.0 (5.0-9.0) Ur Specific [place] 1.025 (1.005-1.030) Urine Protein >=300 H (NEGATIVE) Urine Glucose (UA) 500 H (NEGATIVE) Urine Ketones Trace H (NEGATIVE) Urine Occult Blood Large H (NEGATIVE) Urine Nitrite Negative (NEGATIVE) Urine Bilirubin Negative (NEGATIVE) Urine Urobilinogen 0.2 (0.2-1.0) mg/dL Ur Leukocyte Esterase Negative (NEGATIVE) Urine RBC Packed H /HPF Urine WBC 0-5 (0-5/HPF) /HPF Ur Epithelial Cells Moderate H /HPF Urine Bacteria Few (0-FEW/HPF) /HPF Urine HCG, Qual Negative Ketones Menses currently. Meds: Medications Generic Name Dose Route Start Last Admin Trade Name Freq PRN Reason Stop Dose Admin Diphenhydramine HCl 25 mg 06/07/18 12:51 Benadryl IVPUSH 06/07/18 12:52 ONETIME ONE Ketorolac Tromethamine 30 mg 06/07/18 12:51 Toradol IVPUSH 06/07/18 12:52 ONETIME ONE Discontinued Medications Generic Name Dose Route Start Last Admin Trade Name Serjio PRN Reason Stop Dose Admin Sodium Chloride 1,000 mls @ 999 mls/hr 06/07/18 10:46 06/07/18 10:52 Normal Saline IV 06/07/18 11:46 999 mls/hr .BOLUS ONE Administration Ondansetron HCl 4 mg 06/07/18 10:46 06/07/18 10:53 Zofran IV 06/07/18 10:47 4 mg ONETIME ONE Administration - Radiology Interpretation Free Text/Narrative:: [facility] [place] [facility] Final Radiology Report Call: [phone] assistance Online chat: [email or web address] Name: PRAVEEN GARCIA Age: 33Years F Date: 06/07/2018 SSN: -- : [id number] Study: XR CHEST 2 VIEWS Requesting Physician: JILLIAN KHAN Images: 2 Addl Studies: Provided Clinical History: Contrast: Contrast Medium: Contrast Amount: Contrast Method: CONFIDENTIALITY STATEMENT This report is intended only for use by the referring physician, and only in accordance with law. If you received this in error, call [phone]. Page 1 of 1 EXAM: XR Chest, 2 Views CLINICAL HISTORY: 33 years old, female; Cough. TECHNIQUE: Frontal and lateral views of the chest. COMPARISON: XR CHEST 02/04/2017 FINDINGS: Lungs: No lung consolidation or pulmonary edema. Pleural space: No pleural effusion or pneumothorax. Heart: The heart is not enlarged. Mediastinum: The mediastinal contours are normal. Bones/joints: No acute osseous abnormality. IMPRESSION: No acute abnormality. Thank you for allowing us to participate in the care of your patient. 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 Rx: Z-jaime 250mg Rest, drink plenty of water. Monitor your blood sugar closely until you feel better. Follow up in clinic in 3 days for recheck. - My Orders Last 24 Hours: My Active Orders 06/07/18 10:42 Blood Culture x2 Reflex Set [OM.PC] Stat 06/07/18 10:55 CULTURE STREP A CONFIRMATION [RM] Stat STREP SCRN A RAPID W CULT CONF [RM] Stat 06/07/18 10:58 CULTURE BLOOD [BC] Stat 06/07/18 11:03 CULTURE BLOOD [BC] Stat 06/07/18 11:33 HCG QUALITATIVE,URINE [URCHEM] Stat UA W/MICROSCOPIC [URIN] Stat 06/07/18 12:51 Ketorolac [Toradol] 30 mg IVPUSH ONETIME ONE diphenhydrAMINE [Benadryl] 25 mg IVPUSH ONETIME ONE - Assessment/Plan Last 24 Hours: My Active Orders 06/07/18 10:42 Blood Culture x2 Reflex Set [OM.PC] Stat 06/07/18 10:55 CULTURE STREP A CONFIRMATION [RM] Stat STREP SCRN A RAPID W CULT CONF [RM] Stat 06/07/18 10:58 CULTURE BLOOD [BC] Stat 06/07/18 11:03 CULTURE BLOOD [BC] Stat 06/07/18 11:33 HCG QUALITATIVE,URINE [URCHEM] Stat UA W/MICROSCOPIC [URIN] Stat 06/07/18 12:51 Ketorolac [Toradol] 30 mg IVPUSH ONETIME ONE diphenhydrAMINE [Benadryl] 25 mg IVPUSH ONETIME ONE
[2018-06-07 10:43] VITALS: BP 175/89
[2018-06-07] MEDS: Sodium Chloride 0.9% 1,000 ML IV ONE (10:52)
[2018-06-07] MEDS: Ondansetron 4 MG/2 ML SDV IV ONE (10:53)
[2018-06-07 11:35] LABS: ANION GAP 15.9; CHLORIDE,CL 99 mmol/L (101-111); SODIUM,NA 135 mmol/L (135-145)
[2018-06-07] MEDS: Ketorolac 30 MG/ML SDV IVPUSH ONE (13:11)
[2018-06-07] MEDS: diphenhydrAMINE 50 MG/ML SDV IVPUSH ONE (13:12)
== END 2018-06-07 13:14 | disposition home or self-care (01) ==
LOC: DL.ED 10:37
DX: J02.9 Acute pharyngitis, unspecified (principal); E11.65 Type 2 diabetes mellitus with hyperglycemia; F41.9 Anxiety disorder, unspecified; F32.9 Major depressive disorder, single episode, unspecified; I10 Essential (primary) hypertension; Z79.899 Other long term (current) drug therapy; Z79.84 Long term (current) use of oral hypoglycemic drugs
CPT/HCPCS: 36415; 71046; 80053; 81001; 81025; 82009; 82150; 83605; 83690; 85025; 87040; 87081; 87430; 96361; 96374; 96375; 99283; J1200; J1885; J2405; J7030

== ENCOUNTER 2020-08-18 10:17 | Emergency (ER) | payer MEDICAID ==
[2020-08-18] MEDS ORDERED: Lisinopril 10 MG Tab PO ONE (10:18)
[2020-08-18] MEDS ORDERED: Lisinopril 10 MG Tab ONE (10:40)
[2020-08-18 11:17] LABS: ANION GAP 15.5 mEq/L (7-13); CHLORIDE,CL 101 mmol/L (98-107); SODIUM,NA 137 mmol/L (136-145)
== END 2020-08-18 11:26 ==
LOC: DL.ED 10:17
DX: I10 Essential (primary) hypertension (principal); F41.9 Anxiety disorder, unspecified; E11.9 Type 2 diabetes mellitus without complications; Z79.84 Long term (current) use of oral hypoglycemic drugs
CPT/HCPCS: 36415; 71045; 80053; 80305; 81001; 81025; 84484; 85025; 85379; 99285; A9270

== ENCOUNTER 2020-09-15 13:37 | Emergency (ER) | payer MEDICAID ==
[2020-09-15 14:02] VITALS: BP 155/86; PULSE 114
--- NOTE | 2020-09-15 15:14 | EDM.PDOC ---
ED HPI GENERAL MEDICAL PROBLEM - General Chief Complaint: ENT Problem Stated Complaint: NOT FEELING WELL Time Seen by Provider: 09/15/20 15:00 Source of Information: Reports: Patient History Limitations: Reports: No Limitations - History of Present Illness INITIAL COMMENTS - FREE TEXT/NARRATIVE: This 35 yo female patient reports to the ED due to head congestion (reported to the provider) for the past 4 days. The patient reports she has been taking ibuprofen for temporary symptom relief, but no other medications. The patient denies any recent clinic visits. Onset Date: 09/11/20 Duration: Constant, Getting Worse Location: Reports: Head ([place]) Quality: Reports: Pressure Severity: Mild Improves with: Reports: None Worsens with: Reports: None Context: Reports: Other - Related Data Allergies Allergy/AdvReac Type Severity Reaction Status Date / Time erythromycin base Allergy Unknown Cannot Verified 09/15/20 14:01 [Erythromycin Base] Remember Sulfa (Sulfonamide Allergy Cannot Verified 09/15/20 14:01 Antibiotics) Remember Home Meds: Home Meds Lisinopril 10 mg PO DAILY 01/27/18 [History] Metoprolol Succinate/HCTZ [Metoprolol ER-Hctz 25-12.5 mg] 25 mg PO DAILY 01/27/18 [History] glipiZIDE [Glucotrol XL] 10 mg PO BID 01/27/18 [History] Past Medical History - Past Health History Medical/Surgical History: Denies Medical/Surgical History HEENT History: Reports: Impaired Vision Cardiovascular History: Reports: Hypertension Genitourinary 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: Musculoskeletal History: Reports: None Neurological History: Reports: CVA, Other (See Below) Other Neuro History: questionable stroke 2012, [place] palsy Psychiatric History: Reports: Anxiety, Depression Endocrine/Metabolic History: Reports: Diabetes, Type II, Obesity/BMI 30+ - Infectious Disease History Infectious Disease History: Reports: None - Past Surgical History HEENT Surgical History: Reports: Myringotomy w Tube(s) Female Surgical History: Reports: Section Musculoskeletal Surgical History: Reports: Other (See Below) Other Musculoskeletal Surgeries/Procedures:: foot surgery Social & Family History - Family History Family Medical History: No Pertinent Family History - Tobacco Use Tobacco Use Status *Q: Never Tobacco User - Caffeine Use Caffeine Use: Reports: Soda, Tea Other Caffeine Use: states rare soda - Recreational Drug Use Recreational Drug Use: No - Living Situation & Occupation Living situation: Reports: , with Family Occupation: Unemployed ED ROS ENT - Review of Systems Review Of Systems: Comprehensive ROS is negative, except as noted in HPI. ED EXAM, ENT - Physical Exam Exam: See Below Exam Limited By: No Limitations General Appearance: Alert, WD/WN, Mild Distress, Obese Eye Exam: Bilateral Eye: EOMI, Normal Inspection, PERRL Ears: Normal External Exam, Normal Canal, Hearing Grossly Normal, TM Perforation (left chronic) Nose: Normal Inspection, Normal Mucousa, No Blood Mouth/Throat: Normal Inspection, Normal Gums, Normal Lips, Normal Oropharynx, Normal Teeth Head: Atraumatic, Normocephalic Neck: Normal Inspection, Supple, Non-Tender, Full Range of Motion Respiratory/Chest: No Respiratory Distress, Lungs Clear, Normal Breath Sounds, No Accessory Muscle Use, Chest Non-Tender Cardiovascular: Normal Peripheral Pulses, Regular Rate, Rhythm, No Edema, No Gallop, No JVD, No Murmur, No Rub GI/Abdominal: Normal Bowel Sounds, Soft, Non-Tender, No Organomegaly, No Distention, No Abnormal Bruit, No Mass (Female) Exam: Deferred Rectal (Female) Exam: Deferred Back: Normal Inspection, Full Range of Motion Extremities: Normal Inspection, Normal Range of Motion, Non-Tender, No Pedal Edema, Normal Capillary Refill Neurological: Alert, Oriented, CN II-XII Intact, Normal Cognition, Normal Gait, Normal Reflexes, No Motor/Sensory Deficits Psychiatric: Normal Affect, Normal Mood Skin: Warm, Dry, Intact, Normal Color, No Rash Lymphatic: No Adenopathy Course - Vital Signs Last Recorded V/S: Last Vital Signs Temp 36.4 C 09/15/20 14:00 Pulse 114 H 09/15/20 14:00 Resp 16 09/15/20 14:00 BP 155/86 H 09/15/20 14:00 Pulse Ox 98 09/15/20 14:00 - Orders/Labs/Meds Labs: Laboratory Tests 09/15/20 Range/Units 14:35 SARS-CoV-2 RNA (GURDEEP) Positive H (NEGATIVE) Departure - Departure Time of Disposition: 16:17 Disposition: Home, Self-Care 01 Condition: Fair Clinical Impression: COVID-19 - Discharge Information *PRESCRIPTION DRUG MONITORING PROGRAM REVIEWED*: Not Applicable *COPY OF PRESCRIPTION DRUG MONITORING REPORT IN PATIENT CYNTHIA: Not Applicable Instructions: COVID-19: How to Protect Yourself and Others - CDC, COVID-19, Prevent the Spread of COVID-19 if You Are Sick - CDC, COVID-19 Frequently Asked Questions Forms: ED Department Discharge Care Plan Goals: The patient was advised of the examination and lab results during the visit. The patient was advised to remain quarantined for the next 14 days along with all close contacts. If the patient has any additional symptoms or further concerns, the patient should either return to the emergency department or visit her primary care facility. Sepsis Event Note (ED) - Evaluation Sepsis Screening Result: No Definite Risk - Focused Exam Vital Signs: Vital Signs Temp Pulse Resp BP Pulse Ox 09/15/20 14:00 36.4 C 114 H 16 155/86 H 98
== END 2020-09-15 16:22 | disposition home or self-care (01) ==
LOC: DL.ED 13:37
DX: U07.1 COVID-19 (principal); I10 Essential (primary) hypertension; E66.9 Obesity, unspecified; E11.9 Type 2 diabetes mellitus without complications; Z79.84 Long term (current) use of oral hypoglycemic drugs; Z68.30 Body mass index [BMI] 30.0-30.9, adult; Z88.1 Allergy status to other antibiotic agents; Z88.2 Allergy status to sulfonamides; Z79.899 Other long term (current) drug therapy
CPT/HCPCS: 99282; 99283; U0002

== ENCOUNTER 2022-07-23 18:28 | Emergency (ER) | payer MEDICAID ==
[2022-07-23 20:52] VITALS: BP 161/107; PULSE 80
== END 2022-07-23 20:52 | disposition home or self-care (01) ==
LOC: DL.ED 18:28
DX: M79.671 Pain in right foot (principal); I10 Essential (primary) hypertension; E11.9 Type 2 diabetes mellitus without complications; E66.9 Obesity, unspecified; Z68.31 Body mass index [BMI] 31.0-31.9, adult; Z88.1 Allergy status to other antibiotic agents; Z88.2 Allergy status to sulfonamides; Z79.899 Other long term (current) drug therapy
CPT/HCPCS: 73610-RT; 73620-RT; 99283

== ENCOUNTER 2022-08-17 19:41 | Emergency (ER) | payer MEDICAID | END 2022-08-17 21:19 | disposition left against medical advice (07) | LOC: DL.ED 19:41 | DX: Z53.21 Procedure and treatment not carried out due to patient leaving prior to being seen by health care provider (principal) ==

== ENCOUNTER 2022-12-03 16:35 | Emergency (ER) | payer MEDICAID ==
[2022-12-03] MEDS ORDERED: Rabies Vaccine (Avian) 2.5 Unit Inj Kit IM ONE (16:44)
[2022-12-03 16:45] VITALS: BP 172/100; PULSE 85
[2022-12-03] MEDS ORDERED: Amoxicillin/Clavulanate K 875-125 MG Tab PO ONE (17:31)
[2022-12-03] MEDS ORDERED: Amoxicillin/Clavulanate K 875-125 MG Tab ONE (17:32)
== END 2022-12-03 17:36 | disposition home or self-care (01) ==
LOC: DL.ED 16:35
DX: S81.851A Open bite, right lower leg, initial encounter (principal); E11.9 Type 2 diabetes mellitus without complications; I10 Essential (primary) hypertension; E66.9 Obesity, unspecified; Z88.1 Allergy status to other antibiotic agents; Z88.2 Allergy status to sulfonamides; Z79.899 Other long term (current) drug therapy; Z68.29 Body mass index [BMI] 29.0-29.9, adult; Z29.14 Encounter for prophylactic rabies immune globulin; Z86.73 Personal history of transient ischemic attack (TIA), and cerebral infarction without residual deficits; W55.01XA Bitten by cat, initial encounter
CPT/HCPCS: 90471; 90675; 99283; A9270

== ENCOUNTER 2023-05-26 00:15 | Emergency (ER) | payer MEDICAID ==
[2023-05-26 00:25] VITALS: BP 166/116; PULSE 99
[2023-05-26] MEDS ORDERED: Ondansetron 4 MG/2 ML SDV IVPUSH ONE (01:07)
[2023-05-26] MEDS ORDERED: Sodium Chloride 0.9% 10 ML Syringe FLUSH PRN (01:07)
[2023-05-26] MEDS ORDERED: HYDROmorphone 1 MG/ML Syringe IVPUSH ONE ×2 (01:07→02:19)
[2023-05-26] MEDS ORDERED: Take Home: Acetaminophen/oxyCODONE 325-5 MG, 5 Tab Pack PO ONE (02:23)
== END 2023-05-26 02:54 | disposition home or self-care (01) ==
LOC: DL.ED 00:15
DX: S82.254A Nondisplaced comminuted fracture of shaft of right tibia, initial encounter for closed fracture (principal); E11.9 Type 2 diabetes mellitus without complications; E66.9 Obesity, unspecified; I10 Essential (primary) hypertension; Z79.899 Other long term (current) drug therapy; Z68.34 Body mass index [BMI] 34.0-34.9, adult; Z88.1 Allergy status to other antibiotic agents; W18.30XA Fall on same level, unspecified, initial encounter
CPT/HCPCS: 73562-RT; 96374; 96375; 96376; 99284; 99284-25; A9270-GY; J1170; J2405; J3490

== ENCOUNTER 2023-05-27 13:55 | Emergency (ER) | payer MEDICAID ==
[2023-05-27] MEDS ORDERED: HYDROmorphone 1 MG/ML Syringe IM ONE (14:11)
[2023-05-27] MEDS ORDERED: Promethazine 25 MG/ML SDV IM ONE (14:12)
[2023-05-27 14:14] VITALS: BP 157/90; PULSE 114
== END 2023-05-27 14:47 | disposition home or self-care (01) ==
LOC: DL.ED 13:55
DX: S82.141A Displaced bicondylar fracture of right tibia, initial encounter for closed fracture (principal); I10 Essential (primary) hypertension; E11.9 Type 2 diabetes mellitus without complications; E66.9 Obesity, unspecified; F17.210 Nicotine dependence, cigarettes, uncomplicated; Z98.890 Other specified postprocedural states; Z88.1 Allergy status to other antibiotic agents; Z88.2 Allergy status to sulfonamides; Z79.899 Other long term (current) drug therapy; Z79.84 Long term (current) use of oral hypoglycemic drugs; W01.198A Fall on same level from slipping, tripping and stumbling with subsequent striking against other object, initial encounter; Y93.02 Activity, running
CPT/HCPCS: 96372; 99283; J1170; J2550

== ENCOUNTER 2024-11-05 15:35 | Emergency (ER) | payer SELFPAY ==
[2024-11-05 15:44] VITALS: BP 149/90
[2024-11-05 15:45] VITALS: PULSE 118
[2024-11-05] MEDS: Take Home: Ondansetron 4 MG Tab.DIS, 5 Tab Pack PO ONE (16:27)
== END 2024-11-05 16:29 | disposition home or self-care (01) ==
LOC: DL.ED 15:35
DX: B34.9 Viral infection, unspecified (principal); I10 Essential (primary) hypertension; E11.9 Type 2 diabetes mellitus without complications; Z88.1 Allergy status to other antibiotic agents; Z88.2 Allergy status to sulfonamides; Z79.899 Other long term (current) drug therapy
CPT/HCPCS: 99283; 99284; Q0162

== ENCOUNTER 2025-04-21 23:15 | Emergency (ER) | payer MEDICAID ==
[2025-04-22] MEDS: Take Home: Acetaminophen/HYDROcodone 325-5 MG, 5 Tab Pack PO ONE (00:12)
[2025-04-22 00:28] VITALS: BP 154/88; PULSE 88
== END 2025-04-22 00:23 | disposition home or self-care (01) ==
LOC: DL.ED 23:15
DX: S93.401A Sprain of unspecified ligament of right ankle, initial encounter (principal); S69.92XA Unspecified injury of left wrist, hand and finger(s), initial encounter; I10 Essential (primary) hypertension; E11.9 Type 2 diabetes mellitus without complications; Z88.1 Allergy status to other antibiotic agents; Z88.2 Allergy status to sulfonamides; Z79.84 Long term (current) use of oral hypoglycemic drugs; Z79.899 Other long term (current) drug therapy; W18.39XA Other fall on same level, initial encounter; Y93.89 Activity, other specified
CPT/HCPCS: 73140-FA; 73590-RT; 73610-RT; 73630-RT; 99283; 99284; A9270-GY